=== PATIENT | female | born 1995 | race Caucasian/White ===

== ENCOUNTER 2019-11-09 10:00 | Inpatient (IN) | payer BC ==
[2019-11-09 10:59] VITALS: BMI 31.1
[2019-11-09] MEDS ORDERED: DINOPROSTONE 10 MG VAGINAL SUPPOSITORY VG ONE (11:57)
[2019-11-09] MEDS ORDERED: LACTATED RINGERS SOLUTION 1,000 ML/1,000 ML INFUS.BAG IV SCH (12:00)
--- NOTE | 2019-11-09 12:04 | PD.OB.PROG ---
Past Medical History - Primary Care Physician PCP:: Grace Sumner - Admission Chief Complaint: no complaints History of Present Illness: called by PMD Dr. Sumner who admitted her pvt pt. for iol. requesting cervidil placement on this primip at 39+ weeks. History Source: Patient Limitations to Obtaining History: No Limitations - Nursing Documentation Maternal Triage Index: Maternal Triage Index ( Priority 5, Requesting MFTI) Hemorrhage Risk Assessment: Risk Level Low Risk High Level Risk Factors for None Hemorrhage Medium Level Risk Factors for None of the above Hemorrhage Low Level Risk Factors for None of the above Hemorrhage Nursing Documentation Reviewed: Yes - Past Medical History ...: 1 ...Para: 0 ...Term: 0 ...: 0 ...Spon : 0 ...Induced : 0 ...Living Children: 0 ...LMP: 02/04/19 ... Weeks Gestation by Dates: 39.5 ...EDC by Dates: 11/11/19 ...EDC by Sono: 11/11/19 - Smoking History Smoking history: Never smoked Have you smoked in the past 12 months: No - Alcohol/Substance Use Hx Alcohol Use: No <Wally Canales - Last Filed: 11/09/19 11:58> - Primary Care Physician Documenting Provider Type: Attending - Nursing Documentation Maternal Triage Index: Maternal Triage Index ( Priority 5, Requesting MFTI) Hemorrhage Risk Assessment: Risk Level Low Risk High Level Risk Factors for None Hemorrhage Medium Level Risk Factors for None of the above Hemorrhage Low Level Risk Factors for None of the above Hemorrhage <Grace Sumner - Last Filed: 11/09/19 18:01> Review of Systems - Review of Systems Constitutional: reports: No Symptoms Eyes: reports: No Symptoms HENT: reports: No Symptoms Neck: reports: No Symptoms Cardiovascular: reports: No Symptoms Respiratory: reports: No Symptoms Gastrointestinal: reports: No Symptoms Genitourinary: reports: No Symptoms Breasts: reports: No Symptoms Reported Musculoskeletal: reports: No Symptoms Integumentary: reports: No Symptoms Neurological: reports: No Symptoms Endocrine: reports: No Symptoms Hematology/Lymphatic: reports: No Symptoms Psychiatric: reports: No Symptoms <Grace Sumner - Last Filed: 11/09/19 18:01> Physical Exam - Obstetrical Vital Signs: Vital Signs Temperature 97.9 F 11/09/19 10:46 Pulse Rate 120 H 11/09/19 10:46 Respiratory Rate 17 11/09/19 10:46 Blood Pressure 128/79 11/09/19 10:46 O2 Sat by Pulse Oximetry (%) - Abdominal Exam/OB Number of Fetuses: Single Presentation: Vertex Regularity: Irritability Monitor Mode: External Heart Rate (range): 130 Category: I Accelerations: Uniform Decelerations: None - Vaginal Exam/OB Dilatation (cm): 1 <Wally Canales - Last Filed: 11/09/19 11:58> Vital Signs: Vital Signs Temperature 98.1 F 11/09/19 15:00 Pulse Rate 77 11/09/19 15:00 Respiratory Rate 18 11/09/19 15:00 Blood Pressure 116/64 11/09/19 15:00 O2 Sat by Pulse Oximetry (%) Constitutional: Yes: Well Nourished, No Distress Eyes: Yes: WNL HENT: Yes: WNL Neck: Yes: WNL Cardiovascular: Yes: WNL Lungs: Clear to auscultation Breast(s): Yes: WNL - Abdominal Exam/OB Heart Rate Location: RLQ - Vaginal Exam/OB Amniotic Membrane Status: Intact Presentation: Vertex/Position Station: -1 - Physical Exam Musculoskeletal: Yes: WNL Extremities: Yes: WNL Edema: Yes Edema: LLE: 1+, RLE: 1+ Integumentary: Yes: WNL ...Motor Strength: WNL Psychiatric: Yes: WNL - Labs Lab Results: CBC, BMP 11/09/19 12:05 11/09/19 12:05 <Grace Sumner - Last Filed: 11/09/19 18:01> Problem List - Problems (1) 39 weeks gestation of Code(s): Z3A.39 - 39 WEEKS GESTATION OF (2) Elective induction of labor planned Code(s): [id number] - <Grace Sumner - Last Filed: 11/09/19 18:01> Assessment/Plan iup at 39+ wks pvt pt. Dr. Sumner admitted for scheduled iol cervidil placed as requested. will sign out to laborist tracer bullet section supervisor <Wally Canales - Last Filed: 11/09/19 11:58>
[2019-11-09 12:35] LABS: BASO % 0.4 % (0-2.0); EOS % 0.5 % (0-4.5); HEMATOCRIT 34.1 % (32.4-45.2); HEMOGLOBIN 11.8 GM/dL (10.7-15.3); LYMPH % 15.2 % (8-40); MCHC 34.7 g/dl (32.0-36.0); MEAN CELL VOLUME 86.5 fl (80-96); MEAN PLT VOLUME 10.1 fl (7.5-11.1); MONO % 6.2 % (3.8-10.2); NEUT % 77.7 % (42.8-82.8); PLATELET COUNT 177 K/MM3 (134-434); RBC 3.94 M/mm3 (3.60-5.2); RDW 13.8 % (11.6-15.6); WHITE BLOOD COUNT 8.4 K/mm3 (4.0-10.0)
[2019-11-09 12:44] LABS: INR 0.95 (0.83-1.09); PROTHROMBIN TIME (PATIENT) 11.2 SEC (9.7-13.0)
[2019-11-09 12:47] LABS: ACTIVATED PTT 24.3 SECONDS (25.2-36.5)
[2019-11-09 13:05] LABS: BLOOD UREA NITROGEN 9.2 mg/dL (7-18); CALCIUM 8.5 mg/dL (8.5-10.1); CREATININE 0.6 mg/dL (0.55-1.3); POTASSIUM 3.8 mmol/L (3.5-5.1)
--- NOTE | 2019-11-09 17:53 | PN ---
Progress Note (short form) - Note Progress Note: Pt c/o painful UC and leaking clear fluid VSS VE - 4 cm, 80%, -1 vtx, leaking clear fluid EFM baseline 140 bpm, reactive, cat 1, no decel TOCO UC q 3-4 min A/P Induction of labor Discussed pain meds Pt declined epidural Desires IV meds
[2019-11-09] MEDS ORDERED: BUTORPHANOL TARTRATE 2 MG/ML VIAL IVPB ONE (17:57)
[2019-11-09] MEDS ORDERED: PROMETHAZINE HCL 25 MG/1 ML VIAL IVPB ONE (17:57)
[2019-11-09] MEDS ORDERED: ELECTROLYTE-148 SOLN 1,000 ML IV SCH (18:00)
[2019-11-09] MEDS ORDERED: OXYTOCIN 30 UNITS in 0.9% NS 30 UNIT/500 ML INFUS.BAG IVPB SCH (18:00)
[2019-11-09] MEDS ORDERED: LIDOCAINE HCL 1% PRESERVATIVE FREE - 30ML VIAL ONE (19:06)
[2019-11-09] MEDS ORDERED: OXYTOCIN 10 UNITS/ML VIAL ONE (19:26)
[2019-11-09] MEDS ORDERED: METHYLERGONOVINE MALEATE 0.2 MG/1 ML AMP IM PRN (20:07)
--- NOTE | 2019-11-09 20:07 | PN ---
Delivery - Delivery Type of Anesthesia: Local Episiotomy/Laceration: Right Mediolateral EBL (cc): 400 Delivery, Single - Stages of Labor Placenta: Yes: Spontaneous - Condition of Infant Flight Attendant Inflight Services/Draw Off Worker Present: No Gender: Male Position: OA - [place] Feeding Plan Initial Plan: Exclusive throughout hospitalization Remarks - Remarks Remarks: Under local anesthesia RML performed Baby boy born 9/9 Cord gases and blood collected Placenta and membranes complete Methergine and pitocin IM given
[2019-11-09] MEDS ORDERED: OXYTOCIN 10 UNITS/ML VIAL IM ONE (20:09)
[2019-11-09] MEDS: ACETAMINOPHEN 325 MG TABLET (FP) PO PRN (20:15)
[2019-11-09] MEDS: IBUPROFEN 600 MG TABLET (FP) PO PRN (20:15)
[2019-11-09] MEDS ORDERED: BENZOCAINE 28 GM HEMORRHOIDAL OINTMENT TP SCH (20:15)
[2019-11-09] MEDS ORDERED: WITCH HAZEL 50% (TUCKS) 40 PAD/JAR PAD TP SCH (20:15)
[2019-11-09] MEDS ORDERED: BENZOCAINE 20% 57 GM BOTTLE TP SCH (20:15)
[2019-11-09] MEDS ORDERED: IBUPROFEN 600 MG TABLET (FP) PO ONE (20:29)
[2019-11-09] MEDS ORDERED: ACETAMINOPHEN 325 MG TABLET (FP) ONE (20:30)
[2019-11-09 20:58] LABS: CORD BASE EXCESS -6.9 mmol/L (0-2); CORD HCO3 22.6 mmHg (20-29); CORD PCO2 61.9 mmHg (30-78); CORD pH 7.18 (7.14-7.44)
[2019-11-09 20:59] LABS: CORD BASE EXCESS -5.6 mmol/L (0-2); CORD HCO3 21.5 mmHg (20-29); CORD PCO2 47.9 mmHg (30-78); CORD pH 7.27 (7.14-7.44)
[2019-11-10 08:43] LABS: BASO % 0.4 % (0-2.0); EOS % 0.5 % (0-4.5); HEMATOCRIT 28.4 % (32.4-45.2); HEMOGLOBIN 9.9 GM/dL (10.7-15.3); LYMPH % 16.3 % (8-40); MCHC 34.7 g/dl (32.0-36.0); MEAN CELL VOLUME 86.3 fl (80-96); MONO % 8.4 % (3.8-10.2); NEUT % 74.4 % (42.8-82.8); PLATELET COUNT 178 K/MM3 (134-434); RBC 3.29 M/mm3 (3.60-5.2); RDW 13.8 % (11.6-15.6); WHITE BLOOD COUNT 12.1 K/mm3 (4.0-10.0)
--- NOTE | 2019-11-10 13:51 | DS ---
Physical Exam-CAFETERIA CLERK Vital Signs: Vital Signs Temperature 98.1 F 11/10/19 08:00 Pulse Rate 93 H 11/10/19 08:00 Respiratory Rate 18 11/10/19 08:00 Blood Pressure 117/77 11/10/19 08:00 O2 Sat by Pulse Oximetry (%) 100 11/10/19 08:00 Constitutional: Yes: Well Nourished, No Distress Eyes: Yes: WNL HENT: Yes: WNL Neck: Yes: WNL Cardiovascular: Yes: WNL Respiratory: Yes: WNL Gastrointestinal: Yes: WNL ...Rectal Exam: Yes: WNL. No: Guaiac Trace Renal/: Yes: WNL Pelvis: Yes: WNL External Genitalia: Yes: Normal ....Post : Yes: Slight lochia rubra Breast(s): Yes: WNL Musculoskeletal: Yes: WNL Extremities: Yes: WNL Integumentary: Yes: WNL Wound/Incision: Yes: Clean/Dry Neurological: Yes: WNL ...Motor Strength: WNL Psychiatric: Yes: WNL Labs: CBC, BMP 11/10/19 08:00 11/09/19 12:05 Delivery - Delivery Type of Anesthesia: Local Episiotomy/Laceration: Right Mediolateral EBL (cc): 400 Delivery, Single - Stages of Labor Date 1st Stage Initiatied: 11/09/19 Time 1st Stage Initiated: 18:00 Date 2nd Stage Initiated: 11/09/19 Time 2nd Stage Initiated: 18:30 Date of Delivery: 11/09/19 Time of Delivery: 19:12 Time Placenta Delivered: 19:15 Placenta: Yes: Spontaneous - Condition of Mold Bunch Trimmer/Retirement Specialist Present: No Infant Gender: Male Weight: 3.6 kg Position: OA Total Hours ROM (Hrs/Mins): 1H45M - 1 Minute Total Score: 9 5 Minutes Total Score: 9 - Feeding Plan Initial Plan: Exclusive throughout hospitalization Remarks - Remarks Remarks: May go home tomorrow F/U in 4 weeks Discharge Summary Problems reviewed: Yes Reason For Visit: INDUCTION OF LABOR Current Active Problems 39 weeks gestation of (Acute) Elective induction of labor planned (Acute) Hospital Course: good Plan of Treatment: May go home 11/11/2019 F/U in 4 -6 weeks Condition: Good - Instructions
[2019-11-10] MEDS: IBUPROFEN 600 MG TABLET (FP) PO PRN (23:07)
[2019-11-10] MEDS: ACETAMINOPHEN 325 MG TABLET (FP) PO PRN (23:07)
[2019-11-11 11:12] VITALS: BP 112/62; PULSE 68; TEMP 98.4
--- NOTE | 2019-11-11 13:14 | PN ---
Post Progress Note Post Day: 2 Type of Delivery: Vital Signs: Vital Signs Temperature 98.4 F 11/11/19 10:00 Pulse Rate 68 11/11/19 10:00 Respiratory Rate 20 11/11/19 10:00 Blood Pressure 112/62 11/11/19 10:00 O2 Sat by Pulse Oximetry (%) 97 11/10/19 21:55 Breast Exam: Yes: Soft Uterus: Yes: Fundus Firm, Fundus below umbilicus, Non-tender Abdomen/GI: Yes: Abdomen soft, Tolerating PO Lochia: Yes: Rubra Lochia, amount: Small Perineum: Yes: Episiotomy Activity: Ambulating - Labs Labs: CBC WBC 12.1 K/mm3 (4.0-10.0) H 11/10/19 08:00 RBC 3.29 M/mm3 (3.60-5.2) L 11/10/19 08:00 Hgb 9.9 GM/dL (10.7-15.3) L 11/10/19 08:00 Hct 28.4 % (32.4-45.2) L D 11/10/19 08:00 MCV 86.3 fl (80-96) 11/10/19 08:00 MCH 30.0 pg (25.7-33.7) 11/10/19 08:00 MCHC 34.7 g/dl (32.0-36.0) 11/10/19 08:00 RDW 13.8 % (11.6-15.6) 11/10/19 08:00 Plt Count 178 K/MM3 (134-434) 11/10/19 08:00 MPV 10.0 fl (7.5-11.1) 11/10/19 08:00 Absolute Neuts (auto) 9.0 K/mm3 (1.5-8.0) H 11/10/19 08:00 Neutrophils % 74.4 % (42.8-82.8) 11/10/19 08:00 Lymphocytes % 16.3 % (8-40) 11/10/19 08:00 Monocytes % 8.4 % (3.8-10.2) 11/10/19 08:00 Eosinophils % 0.5 % (0-4.5) 11/10/19 08:00 Basophils % 0.4 % (0-2.0) 11/10/19 08:00 Nucleated RBC % 0 % (0-0) 11/10/19 08:00 Assessment/Plan S/P , ppd # 2, with no complaints Discharge home today.
== END 2019-11-11 15:45 | disposition home or self-care (01) | DRG 807 ==
LOC: JLDR 10:00 → J3N 14:54 → JLDR 19:09 → J3N 21:32
PROVIDERS: ADMIT Obstetrics & Gynecology; ATTEND Obstetrics & Gynecology
PROC: 10E0XZZ Delivery of Products of Conception, External Approach (ICD-10-PCS; principal; 2019-11-09)
PROC: 0W8NXZZ Division of Female Perineum, External Approach (ICD-10-PCS; 2019-11-09)
PROC: 3E0P7VZ Introduction of Hormone into Female Reproductive, Via Natural or Artificial Opening (ICD-10-PCS; 2019-11-09)
DX: O80 Encounter for full-term uncomplicated delivery (principal); Z37.0 Single live birth; Z3A.39 39 weeks gestation of pregnancy
CPT/HCPCS: 36415; 36600; 59409; 80048; 82803; 85025; 85610; 85730; 86780; 86850; 86900; 86901